=== PATIENT | male | born 1990 | race Caucasian/White ===

== ENCOUNTER 2020-06-15 12:28 | Emergency (ER) | payer OTHER ==
[2020-06-15 12:35] VITALS: BP 125/85; PULSE 84; TEMP 98; BMI 29.4
[2020-06-15] MEDS ORDERED: ACETAMINOPHEN 325 MG TABLET (FP) PO ONE (12:45)
[2020-06-15] MEDS ORDERED: LIDOCAINE 5% TOPICAL PATCH TP ONE (12:45)
[2020-06-15] MEDS ORDERED: LIDOCAINE 5% TOPICAL PATCH ONE (12:51)
[2020-06-15] MEDS ORDERED: ACETAMINOPHEN 500 MG TABLET (FP) ONE (12:51)
== END 2020-06-15 13:15 | disposition home or self-care (01) ==
LOC: FER 12:28
DX: S46.819A Strain of other muscles, fascia and tendons at shoulder and upper arm level, unspecified arm, initial encounter (principal)
CPT/HCPCS: 99283-25

== ENCOUNTER 2022-04-18 07:04 | Emergency (ER) | payer OTHER ==
[2022-04-18 07:40] VITALS: RESP 18; BMI 28.1
[2022-04-18] MEDS ORDERED: IBUPROFEN 600 MG TABLET (FP) PO ONE ×2 (08:03)
[2022-04-18 09:33] VITALS: BP 110/59; PULSE 114; TEMP 99.7
== END 2022-04-18 12:02 | disposition home or self-care (01) ==
LOC: JER 07:04
DX: U07.1 COVID-19 (principal); J09.X2 Influenza due to identified novel influenza A virus with other respiratory manifestations; R05.1 Acute cough
CPT/HCPCS: 0241U-QW; 71046-TC-FY; 99284-25

== ENCOUNTER 2022-10-03 14:16 | Inpatient (IN) | payer OTHER ==
[2022-10-03 14:33] VITALS: BMI 26.6
[2022-10-03] MEDS ORDERED: SODIUM CHLORIDE 1,000 ML IV STA ×2 (15:10→19:56)
[2022-10-03] MEDS ORDERED: MAG HYDROX/AL HYDROX/SIMETH -MYLANTA- ORAL SUSPENSION PO ONE (15:11)
[2022-10-03] MEDS ORDERED: FAMOTIDINE 20 MG/50 ML IVPB 20 MG/50 ML MG IVPB ONE ×2 (15:11→15:18)
[2022-10-03] MEDS ORDERED: METOCLOPRAMIDE HCL INJECTION 10 MG/2 ML VIAL IVPUSH ONE (15:11)
[2022-10-03] MEDS ORDERED: METOCLOPRAMIDE HCL INJECTION 10 MG/2 ML VIAL ONE (15:17)
[2022-10-03] MEDS ORDERED: MAG HYDROX/AL HYDROX/SIMETH 30 ML UNIT-DOSE CUP ONE (15:18)
[2022-10-03 15:48] LABS: BASO % 0.7 % (0-2.0); EOS % 4.2 % (0-4.5); HEMATOCRIT 39.4 % (35.4-49); HEMOGLOBIN 13.7 GM/dL (11.7-16.9); LYMPH % 30.6 % (8-40); MCH 29.6 pg (25.7-33.7); MCHC 34.9 g/dl (32.0-35.9); MEAN PLT VOLUME 9.3 fl (7.5-11.1); MONO % 17.7 % (3.8-10.2); NEUT % 46.8 % (42.8-82.8); PLATELET COUNT 232 10^3/uL (134-434); RBC 4.64 M/mm3 (4.00-5.60); RDW 13.9 % (11.9-15.9); WHITE BLOOD COUNT 6.2 K/mm3 (4.0-10.0)
[2022-10-03 15:57] LABS: INR 1.22 (0.83-1.09); PROTHROMBIN TIME (PATIENT) 14.1 SEC (9.7-13.0)
[2022-10-03 15:58] LABS: URINE APPEARANCE CLEAR; URINE BILIRUBIN NEGATIVE (NEGATIVE); URINE COLOR DK YELLOW; URINE GLUCOSE (UA) NEGATIVE (NEGATIVE); URINE KETONE TRACE (NEGATIVE); URINE LEUK ESTERASE NEGATIVE (NEGATIVE); URINE NITRITE NEGATIVE (NEGATIVE); URINE PROTEIN NEGATIVE (NEGATIVE); URINE UROBILINOGEN 0.2 mg/dL (0.2-1.0)
[2022-10-03 15:59] LABS: ACTIVATED PTT 30.1 SECONDS (25.2-36.5)
[2022-10-03 16:16] LABS: POTASSIUM 3.7 mmol/L (3.5-5.1)
[2022-10-03 16:18] LABS: ALBUMIN 3.4 g/dl (3.4-5.0); CALCIUM 9.3 mg/dL (8.5-10.1)
[2022-10-03 16:21] LABS: CREATININE 0.6 mg/dL (0.55-1.3)
[2022-10-03 16:23] LABS: BILIRUBIN,TOTAL 0.4 mg/dL (0.2-1); TOT PROT 6.9 g/dl (6.4-8.2)
[2022-10-03] MEDS: SODIUM CHLORIDE 1,000 ML IV SCH (23:00)
[2022-10-04] MEDS ORDERED: ACETAMINOPHEN 1000 MG/100 ML BAG IVPB PRN (02:24)
[2022-10-04] MEDS ORDERED: ONDANSETRON 4 MG/2 ML VIAL IVPUSH PRN (02:25)
[2022-10-04] MEDS: SODIUM CHLORIDE 1,000 ML IV SCH ×2 (09:47→17:48)
[2022-10-04 09:50] LABS: BASO % 0.7 % (0-2.0); EOS % 2.4 % (0-4.5); HEMATOCRIT 37.6 % (35.4-49); HEMOGLOBIN 12.8 GM/dL (11.7-16.9); LYMPH % 24.4 % (8-40); MCH 29.1 pg (25.7-33.7); MCHC 33.9 g/dl (32.0-35.9); MEAN CELL VOLUME 85.9 fl (80-96); MEAN PLT VOLUME 8.8 fl (7.5-11.1); MONO % 12.8 % (3.8-10.2); NEUT % 59.7 % (42.8-82.8); PLATELET COUNT 227 10^3/uL (134-434); RBC 4.38 M/mm3 (4.00-5.60); RDW 13.8 % (11.9-15.9); WHITE BLOOD COUNT 6.1 K/mm3 (4.0-10.0)
[2022-10-04 10:17] LABS: POTASSIUM 3.8 mmol/L (3.5-5.1)
[2022-10-04 10:31] LABS: ALBUMIN 3.3 g/dl (3.4-5.0)
[2022-10-04 10:32] LABS: CALCIUM 8.5 mg/dL (8.5-10.1); MAGNESIUM 1.8 mg/dL (1.8-2.4)
[2022-10-04 10:34] LABS: CREATININE 0.5 mg/dL (0.55-1.3); PHOSPHOROUS 2.6 mg/dL (2.5-4.9)
[2022-10-04 10:35] LABS: TOT PROT 6.3 g/dl (6.4-8.2)
[2022-10-04 10:36] LABS: BILIRUBIN,TOTAL 0.5 mg/dL (0.2-1)
[2022-10-04] MEDS ORDERED: ACETAMINOPHEN 325 MG TABLET (FP) PO PRN (20:51)
[2022-10-05] MEDS ORDERED: BUPIVACAINE HCL/PF 0.25% (2.5MG/ML) 10 ML VIAL IJ ONE
[2022-10-05] MEDS: SODIUM CHLORIDE 1,000 ML IV SCH (01:11)
[2022-10-05] MEDS ORDERED: ACETAMINOPHEN 325 MG TABLET (FP) PO PRN (02:30)
[2022-10-05] MEDS: ACETAMINOPHEN 1000 MG/100 ML BAG IVPB PRN ×2 (04:32→10:30)
[2022-10-05] MEDS ORDERED: BUPIVACAINE HCL/PF 0.5% (5MG/ML) 10 ML VIAL ONE ×2 (07:33→08:14)
[2022-10-05] MEDS ORDERED: BUPIVACAINE HCL/PF 0.25% (2.5MG/ML) 10 ML VIAL ONE (07:33)
[2022-10-05] MEDS ORDERED: PROPOFOL 40 ML ONE (07:44)
[2022-10-05] MEDS ORDERED: LIDOCAINE HCL/PF 2% SDV 5ML VIAL ONE (07:44)
[2022-10-05] MEDS ORDERED: MIDAZOLAM HCL 2 MG/2 ML SINGLE DOSE VIAL ONE (07:44)
[2022-10-05] MEDS ORDERED: ROCURONIUM BROMIDE 50 MG/5 ML SYRINGE ONE (07:46)
[2022-10-05] MEDS ORDERED: ceFAZolin SODIUM 1 GM VIAL IVPB ONE (08:16)
[2022-10-05] MEDS ORDERED: SUGAMMADEX SODIUM 200 MG/2 ML VIAL ONE (08:23)
[2022-10-05] MEDS ORDERED: BUPIVACAINE HCL/PF 0.5% (5MG/ML) 10 ML VIAL IJ ONE ×2 (08:29)
[2022-10-05] MEDS ORDERED: ONDANSETRON 4 MG/2 ML VIAL IVPUSH PRN ×2 (09:40→10:36)
[2022-10-05] MEDS ORDERED: LACTATED RINGERS SOLUTION 1,000 ML IV SCH (09:45)
[2022-10-05] MEDS ORDERED: ACETAMINOPHEN INJECTION 100 ML IVPB ONE (09:49)
[2022-10-05] MEDS ORDERED: oxyCODONE HCL 5 MG TABLET PO PRN ×2 (09:57→10:36)
[2022-10-05] MEDS ORDERED: ALBUTEROL SO4 HFA INHALER IH PRN ×2 (09:59→10:36)
[2022-10-05] MEDS: ACETAMINOPHEN 500 MG TABLET (FP) PO SCH ×2 (12:48→21:05)
[2022-10-05] MEDS: oxyCODONE HCL 5 MG TABLET PO PRN (13:36)
[2022-10-05] MEDS: LACTATED RINGERS SOLUTION 1,000 ML IV SCH ×3 (13:42→22:58)
[2022-10-05] MEDS: DOCUSATE SODIUM 100 MG CAPSULE (FP) PO SCH (21:06)
[2022-10-05] MEDS ORDERED: DOCUSATE SODIUM 100 MG CAPSULE (FP) PO SCH (22:00)
[2022-10-06] MEDS: oxyCODONE HCL 5 MG TABLET PO PRN (00:47)
[2022-10-06] MEDS: ACETAMINOPHEN 500 MG TABLET (FP) PO SCH ×2 (05:13→14:25)
[2022-10-06] MEDS: LACTATED RINGERS SOLUTION 1,000 ML IV SCH (07:01)
[2022-10-06 09:02] LABS: BASO % 0.2 % (0-2.0); EOS % 0.2 % (0-4.5); HEMATOCRIT 35.8 % (35.4-49); HEMOGLOBIN 12.3 GM/dL (11.7-16.9); LYMPH % 21.4 % (8-40); MCH 29.1 pg (25.7-33.7); MCHC 34.4 g/dl (32.0-35.9); MEAN CELL VOLUME 84.6 fl (80-96); MEAN PLT VOLUME 9.5 fl (7.5-11.1); MONO % 12.3 % (3.8-10.2); NEUT % 65.9 % (42.8-82.8); PLATELET COUNT 243 10^3/uL (134-434); RBC 4.23 M/mm3 (4.00-5.60); RDW 13.4 % (11.9-15.9); WHITE BLOOD COUNT 11.9 K/mm3 (4.0-10.0)
[2022-10-06] MEDS: DOCUSATE SODIUM 100 MG CAPSULE (FP) PO SCH (09:17)
[2022-10-06 10:27] LABS: POTASSIUM 3.6 mmol/L (3.5-5.1)
[2022-10-06 10:32] LABS: ALBUMIN 3.2 g/dl (3.4-5.0); CALCIUM 9.1 mg/dL (8.5-10.1)
[2022-10-06 10:33] LABS: BLOOD UREA NITROGEN 5.8 mg/dL (7-18)
[2022-10-06 10:36] LABS: CREATININE 0.6 mg/dL (0.55-1.3)
[2022-10-06 10:37] LABS: BILIRUBIN,TOTAL 0.6 mg/dL (0.2-1); TOT PROT 6.2 g/dl (6.4-8.2)
[2022-10-06 13:54] VITALS: BP 108/56; PULSE 66; RESP 18; TEMP 98.1
== END 2022-10-06 16:05 | disposition home or self-care (01) | DRG 419 ==
LOC: JER 14:16 → JERBED 19:47 → J6S 10-04 00:27
PROVIDERS: ADMIT Internal Medicine; ATTEND Internal Medicine
PROC: 0FT44ZZ Resection of Gallbladder, Percutaneous Endoscopic Approach (ICD-10-PCS; principal; 2022-10-05 08:00)
DX: K80.10 Calculus of gallbladder with chronic cholecystitis without obstruction (principal); N20.0 Calculus of kidney
CPT/HCPCS: 0241U-QW; 36415; 74177-TC; 74182-TC; 76705-TC; 80053; 81003; 82962; 83690; 83735; 84100; 85025; 85610; 85730; 87086; 88304-TC; 94760; 99285-25; A9579